=== PATIENT | female | born 2000 | race Caucasian/White ===

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

== ENCOUNTER 2025-05-26 15:41 | Outpatient (CLI) | payer OTHER, SELFPAY ==
--- OUTSIDE RECORDS SUMMARY | 2025-05-26 16:34 | XMS_ITS | Clinical Summary ---
Author Organization [facility] Address [address] [place] [address] Care Team Providers Care Vice President Of Software Engineering Name Role Phone Provider, None Primary Care Provider Unavailabl e Allergies No known active allergies Medications sertraline (ZOLOFT) 50 MG Tablet Take 50 mg by mouth daily. 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 Gender Identity Not on file Sexual Orientation Not on file Last Filed Vital Signs Vital Sign Reading Time Taken Comments Blood Pressure 104/60 09/01/2022 3:23 PM FLATBED STITCHER Pulse 107 09/01/2022 3:23 PM FLATBED STITCHER Temperature 36.9 C (98.4 F) 09/01/2022 3:23 PM FLATBED STITCHER Respiratory Rate 18 09/01/2022 3:23 PM FLATBED STITCHER Oxygen Saturation 99% 09/01/2022 3:23 PM FLATBED STITCHER Inhaled Oxygen Concentration - - Weight 104.3 kg (230 lb) 09/01/2022 3:23 PM FLATBED STITCHER Height 167.6 cm (5' 6) 09/01/2022 3:23 PM FLATBED STITCHER Body Mass Index 37.12 09/01/2022 3:23 PM FLATBED STITCHER Plan of Treatment Health Maintenance Due Date Last Done Comments Hepatitis C Virus (HCV) Screening 2000 Meningococcal B Immunization (1 of 2 - Standard) 2018 Influenza Immunization (#1) 2025 1009/2008, 05/04/2008, 07/01/2007, Additional history exists SARS-COV-2 Immunization (2024- season) 2025 03/22/2021, 03/02/2021, 02/09/2021, Additional history exists Respiratory Syncytial Virus (RSV) Immunization (Adult) (1 - 1-dose 75+ series) 2077 Pneumococcal Immunization Combined Aged Out 04/19/2003, 02/15/2003, 2002 No longer eligible based on patient's age to complete this topic Hepatitis B Immunization Completed 004, 02/15/2003, 2002, Additional history exists DTaP/Tdap/Td Immunization Discontinued 2013, 01/12/2008, 02/21/2004, Additional history exists TdaP Immunization Completed 01/10/2014 Human Papillomavirus (HPV) Immunization Completed 05/15/2020, 02/19/2017 Meningococcal Immunization (ACWY) Completed 05/15/2020, 01/10/2014 Rotavirus Immunization Aged Out No lo nger eligible based on patient's age to complete this topic Insurance Care Teams Vice President Of Software Engineering Relationship Specialty Start Date End Date Provider, None [place] PCP - General 09/01/22
--- OUTSIDE RECORDS SUMMARY | 2025-05-26 16:34 | XMS_ITS | Clinical Summary ---
Author Organization [facility] Address [address] [place] [address] Care Team Providers Care Fundraising Coordinator Name Role Phone Shaneka Law PA-C Primary Care Provider Source Comments [facility],non-owned Affiliates and Associated Physician Practices is amultiple site organization consisting of ambulatory clinics and hospital sitesin [place], [place], [place] and [place]. This disclosure is being madepursuant to the Care Everywhere program and may not contain all information available regarding this patient. Last updated 18.[facility] Allergies No known active allergies Medications * This document contains information received from the source organization and may not represent a complete record from that organization. * Be aware that medications may not be up to date on this document. Alwaysverify current medications with the patient. vitamin D, ergocalciferol, (Drisdol) 1.25 MG (62254 UT) capsule Take 1 (one) capsule by mouth every 7 days 12 capsule 4 Active Wegovy 0.25 MG/0.5ML pen 4 Active Slynd 4 MG TABS tablet 4 Active doxycycline hyclate (Vibramycin) 100 MG capsule TAKE 1 CAPSULE BY MOUTH TWICE DAILY WITH FOOD. DO NOT LIE DOWN FOR 1 HOUR AFTER TAKING 4 Active buPROPion (Wellbutrin) 100 MG tabletIndicatio ns:Major Depressive Disorder Take 0.5 (one-half) tablet by mouth every morning Reasons: Major Depressive Disorder 45 tablet 1 4 Active sertraline (Zoloft) 50 MG tabletIndicatio ns:Major Depressive Disorder Take 3 (three) tablets by mouth at bedtime Reasons: Major Depressive Disorder 90 tablet 5 Active Active Problems Problem Noted Date Diagnosed Date Attention deficit hyperactiv ity disorder (ADHD), combined type 10/27/2023 SIENNA (generalized anxiety disorder) 09/12/2023 Major depressive disorder, single episode, moder ate 11/20/2022 Chronic tonsillitis Resolved Problems Problem Noted Date Diagnosed Date Resolved Date Suicidal ideation 10/31/2022 11/20/2022 Family History Medical History Relation Name Comments Anesthesia Reaction Neg Hx Bleeding Disorders Neg Hx Childhood Hearing Disorder Neg Hx Social History Tobacco Use Types Packs/Day Years Used Date Smoking Tobacco: Never Passive Smoke Exposure: Yes Tobacco Cessation:Counseling Given: Not Answered Alcohol Use Standard Drinks/Week Comments Never 0 (1 standard drink = 0.6 oz pur e alcohol) AUDIT-C Answer Date Recorded Q1: How often do you have a drink containing alcohol? Never 11/01/2022 Q2: How many drinks containi ng alcohol do you have on a typical day when you are drinking? Patient does not drink Frequency of Binge Drinking Not on file 10/04 Overall Financial Resource Strain (CARDIA) Answe r Date Recorded How hard is it for you to pa y for the very basics like food, housing, medical care, and heating? Somewhat hard 11/01/2022 PHQ-2 Answer Date Recorded Patient Health Questionnaire-2 Score 0 03/26/2024 [facility] - Occupational Stress Questionnaire Answer Date Recorded Do you feel stress - tense, restless, nervous, or anxious, or unable to sleep at night because your mind is troubled all the time - these days? Very much 11/01/2022 Hunger Vital Sign Answer Date Recorded Within the past 12 months, y ou worried that your food would run out before you got the money to buy more. Sometimes true Within the past 12 months, t he food you bought just didn't last and you didn't have money to get more. Sometimes true PRAPARE - Transportation Answer Date Re corded In the past 12 months, has l ack of transportation kept you from medical appointments or from getting medications? Yes 10/04 In the past 12 months, has l ack of transportation kept you from meetings, work, or from getting things needed for daily living? Yes 11/01/2022 Housing Stability Vital Sign Answer Sergio e Recorded In the last 12 months, was t here a time when you were not able to pay the mortgage or rent on time? No 11/01/2022 In the last 12 months, how many places have you lived? 2 11/01/2022 In the last 12 months, was t here a time when you did not have a steady place to sleep or slept in a chcf (including now)? 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 Gender Identity Not on file Sexual Orientation Not on file Last Filed Vital Signs Vital Sign Reading Time Taken Comments Blood Pressure 111/67 03/26/2024 8:41 AM CDT Pulse 87 03/26/2024 8:41 AM CDT Temperature 36.4 C (97.6 F) 10/27/2023 10:02 AM CDT Respiratory Rate 16 11/02/2022 7:15 AM CDT Oxygen Saturation 99% 11/02/2022 7:15 AM CDT Inhaled Oxygen Concentration - - Weight 112.8 kg (248 lb 12 oz) 03/26/2024 8:41 A M CDT Height 167.6 cm (5' 6) 03/26/2024 8:41 AM CDT Body Mass Index 40.15 03/26/2024 8:41 AM CDT Plan of Treatment Health Maintenance Due Date Last Done Comments HIV SCREENING 2017 HPV VACCINE (1 - 3-dose series) 2017 CHLAMYDIA/GONORRHEA SCREENING 2018 MENINGOCOCCAL (Group B) VACCINE SHARED DECISION-MAKING (1 of 2 - Standard) 2018 HEPATITIS C SCREENING 10/08/2020 DTAP/TDAP/TD VACCINES (1 - Tdap) 2021 HEPATITIS B VACCINE (1 of 3 - 19+ 3-dose series) 2021 PAP SMEAR 10/14/2023 DEPRESSION SCREENING 08/04/2024 08/07/2023, 11/21/19 23 COVID-19 VACCINE ( season) 2025 03/22/2021, 03/02/2021, 02/09/2021, Additional history exists INFLUENZA VACCINE (#1) 2025 9, 05/04/2008, 07/01/2007, Additional history exists ZOSTER VACCINE (1 of 2) 2052 HIB VACCINE Aged Out No longer eligi ble based on patient's age to complete this topic MENINGOCOCCAL GROUPS A/C/Y/W VACCINE Aged Out No longer eligible based on patient's age to complete this topic PNEUMOCOCCAL VACCINE Aged Out No long er eligible based on patient's age to complete this topic Insurance [employer] MEDICAID - OUT OF STATE [employer] Member Subscriber Plan / Payer (Ef fective 2025-Present) Name:Shabnam Shah Member ID:[id number] Relation to Subscriber:Child Name:Tarah Jaeger Date of :1981 (Home) Address: [address] [place], [place] [id number] Payer ID:[id number] (NAIC) Group ID:Not on file Type:PPO Address: [address] [place] [address] [employer] Member Subscriber Plan / Payer ( fective 2025-Present) Name:Shabnam Shah Member ID:[id number] Relation to Subscriber:Child Name:Tarah Jaeger Date of :1981 (Home) Address: [address] [place] [address] Payer ID:[id number] (NAIC) Group ID:Not on file Type:PPO Address: [address] [place] [address] Advance Directives * Full Code (Latest Code Status on File) Date Activated Date Inactivated Comments 10/31/2022 3:32 PM 11/02/2022 4:40 PM Care Teams Fundraising Coordinator Relationship Specialty Start Date End Date Shaneka Law PA-C [address] [place] [phone] PCP - General Physician Manager Heart Failure 10/31/22
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
== END 2025-05-26 15:42 | disposition home or self-care (01) ==
LOC: ANHCARD 15:44
PROVIDERS: PCP Nurse Practitioner Family; Visit Provider Nurse Practitioner Family
DX: I49.1 Atrial premature depolarization (principal); I49.3 Ventricular premature depolarization
CPT/HCPCS: 93242